=== PATIENT | female | born 1960 | race African-American/Black ===

== ENCOUNTER → 2017-03-12 | Outpatient (CLI) | payer BC ==
[~2017-03-12] VITALS: Ht 167.6 cm; Wt 88.0 kg
[~2017-03-12] MED LIST: AMOXICILLIN500 M1 PO; METFORMIN HCL850 MG PO; VENTOLIN HFA18 GM IH
== END | disposition home or self-care (01) ==
LOC: AMB 02-15 10:30
DX: Z12.11 Encounter for screening for malignant neoplasm of colon (principal); Z86.010 Personal history of colon polyps; R19.7 Diarrhea, unspecified; R53.82 Chronic fatigue, unspecified; E11.9 Type 2 diabetes mellitus without complications; Z87.891 Personal history of nicotine dependence; Z79.84 Long term (current) use of oral hypoglycemic drugs; Z80.3 Family history of malignant neoplasm of breast; Z82.49 Family history of ischemic heart disease and other diseases of the circulatory system; Z83.3 Family history of diabetes mellitus; Z82.3 Family history of stroke; Z83.49 Family history of other endocrine, nutritional and metabolic diseases; Z80.42 Family history of malignant neoplasm of prostate; D12.2 Benign neoplasm of ascending colon; D12.5 Benign neoplasm of sigmoid colon; K57.30 Diverticulosis of large intestine without perforation or abscess without bleeding; K64.8 Other hemorrhoids
CPT/HCPCS: 88305; J2250; J3010

== ENCOUNTER 2018-03-17 15:13 | Emergency (ER) | payer BC ==
[~2018-03-17] VITALS: Ht 165.1 cm; Wt 90.7 kg
[~2018-03-17 15:13] MED LIST changes: +AUGMENTIN875 MG PO; +MUCINEX D ER T1 EAC1 PO; +TYLENOL WITH C1 EACH PO
[2018-03-17 15:50] LABS: HEMATOCRIT 40.8 % (36.0-46.0); HEMOGLOBIN 12.9 G/DL (11.9-15.5); MCHC 31.6 G/DL (30.0-36.0); MCV 85.5 FL (83-99); PLATELET COUNT 385 K/uL (156-360); RBC DIS.WIDTH-CV 14.6 % (11.8-14.6); RBC DIS.WIDTH-SD 46.1 % (39-53); RED BLOOD COUNT 4.77 M/uL (3.80-5.20); WHITE BLOOD COUNT 11.2 K/uL (4.1-10.2)
[2018-03-17 16:02] LABS: ALBUMIN 4.2 g/dL (3.2-4.8)
[2018-03-17 16:03] LABS: CHLORIDE 106 mEq/L (99-109); POTASSIUM 4.9 mEq/L (3.7-5.4); SODIUM 142 mEq/L (136-147)
[2018-03-17 16:06] LABS: GLUCOSE 125 mg/dL (70-99); TOTAL PROTEIN 8.1 g/dL (6.4-8.3)
[2018-03-17 16:07] LABS: TOTAL BILIRUBIN 0.4 mg/dL (0.0-1.0)
[2018-03-17 16:08] LABS: ALKALINE PHOSPHATASE 116 IU/L (3-129)
[2018-03-17 16:09] LABS: CREATININE 0.9 mg/dL (0.6-1.3); GFR ESTIMATE (CALCULATED) > 59 mL/min/
[2018-03-17 16:10] LABS: AST (GOT) 19 IU/L (2-34); UREA NITROGEN (BUN) 11 mg/dL (9-23)
[2018-03-17 16:12] LABS: ALT (GPT) 21 IU/L (3-49)
[2018-03-17 16:25] LABS: LIPASE 10 U/L (1.0-51.0)
[2018-03-17] MEDS ORDERED: CIPRO500 MG PO (18:04)
[2018-03-17] MEDS ORDERED: FLAGYL500 MG PO (18:04)
[2018-03-17 18:57] VITALS: BP 158/86
== END 2018-03-17 18:50 | disposition home or self-care (01) ==
LOC: EME 15:13
DX: K57.30 Diverticulosis of large intestine without perforation or abscess without bleeding (principal); E11.9 Type 2 diabetes mellitus without complications; K21.9 Gastro-esophageal reflux disease without esophagitis; Z87.891 Personal history of nicotine dependence
CPT/HCPCS: 74177; 80053; 81003; 83690; 85027; 99281; 99285; J3010; J7030